=== PATIENT | female | born 1985 | race Two or more races ===

== ENCOUNTER 2019-08-20 15:54 | Inpatient (IN) | payer OTHER ==
[2019-08-20 19:48] VITALS: BMI 29.1
--- NOTE | 2019-08-20 21:41 | HP ---
COWS - Scale Resting Pulse: 1= DC 81-100 Sweatin= Chills/Flushing Restless Observation: 3= Extraneous Movement Pupil Size: 2= Moderately Dilated Bone or Joint Aches: 2= Severe Diffuse Aches Runny Nose/ Eye Tearin= Runny Nose/Eyes GI Upset > 30mins: 2= Nausea/Diarrhea Tremor Observation: 2= Slight Tremor Visible Yawning Observation: 0= None Anxiety or Irritability: 2=Irritable/Anxious Goose Flesh Skin: 0=Smooth Skin COWS Score: 17 CIWA Score Nausea/Vomitin Muscle Tremors: 4-Moderate,w/Arms Extend Anxiety: 4-Mod. Anxious/Guarded Agitation: 3 Paroxysmal Sweats: 2 Orientation: 2-Disoriented Date<2 days Tacttile Disturbances: 0-None Auditory Disturbances: 3-Moderate Harsh/Frighten Visual Disturbances: 3-Moderate Sensitivity Headache: 3-Moderate CIWA-Ar Total Score: 27 - Admission Criteria OASAS Guidelines: Admission for Medically Managed Detox: Requires at least one of the followin. CIWA greater than 12 2. Seizures within the past 24 hours 3. Delirium tremens within the past 24 hours 4. Hallucinations within the past 24 hours 5. Acute intervention needed for co occurring medical disorder 6. Acute intervention needed for co occurring psychiatric disorder 7. Severe withdrawal that cannot be handled at a lower level of care (continued vomiting, continued diarrhea, abnormal vital signs) requiring intravenous medication and/or fluids 8. Patient presents the following: CIWA greater than 12, Acute intervention needed for co-occurring med or psych disorder Admission Criteria Met: Admission criteria met Admitting History and Physical - Primary Care Physician PCP: Teo Garland Admission [facility] Chief Complaint: I need to get off this Allergies/Adverse Reactions: Allergies Allergy/AdvReac Type Severity Reaction Status Date / Time haloperidol [From Haldol] AdvReac Swelling Verified 08/20/19 19:42 History of Present Illness: 34 yo female no pmh for detox heroin use began 6 y ago using 40-45 bags iv etoh use 5 y ago steady pattern cocaine began age 16 - problematic immediately using 3-4 times weekly denies period of abstinence detox 1 mo ago signed out on mmtp x 2 but no abstinence denies incarceration - Ebola screening Have you traveled outside of the country in the last 21 days: No Have you had contact with anyone from an Ebola affected area: No - Review of Systems Constitutional: Loss of Appetite, Changes in sleep EENT: reports: Blurred Vision, Nose Congestion Respiratory: reports: No Symptoms reported Cardiac: reports: No Symptoms Reported GI: reports: Vomiting, Indigestion, Abdominal cramping : reports: No Symptoms Reported Musculoskeletal: reports: Muscle Pain Integumentary: reports: No Symptoms Reported Neuro: reports: Headache Endocrine: reports: No Symptoms Reported Hematology: reports: No Symptoms Reported Psychiatric: reports: other (feels stable pmh bipolar schizoaffective last meds 1 y ago) Patient History - Patient Medical History Hx Anemia: No Hx Asthma: No Hx Chronic Obstructive Pulmonary Disease (COPD): No Hx Cancer: No Hx Cardiac Disorders: No Hx Congestive Heart Failure: No Hx Hypertension: No Hx Hypercholesterolemia: No Hx Pacemaker: No HX Cerebrovascular Accident: No Hx Seizures: No Hx Dementia: No Hx Diabetes: No Hx Gastrointestinal Disorders: No Hx Liver Disease: No Hx Genitourinary Disorders: No Hx Sexually Transmitted Disorders: No Hx Renal Disease (ESRD): No Hx Thyroid Disease: No Hx Human Immunodeficiency Virus (HIV): No Hx Hepatitis C: No Hx Schizophrenia: Yes - Patient Surgical History Past Surgical History: No - Reproductive History Patient is a Female of Child Bearing Age (11 -55 yrs old): Yes Last Menstrual Period: 07/29/16 LMP comment: Patient : No - Smoking Cessation Smoking history: Current every day smoker Aproximately how many cigarettes per day: 3 Initiated information on smoking cessation: Yes 'Breaking Loose' booklet given: 08/20/19 - Substances abused Heroin Substance route: Injection Frequency: Daily Amount used: 40 bags Age of first use: 28 Date of last use: 08/20/19 Cocaine Substance route: Smoking Frequency: 3-6 times per week Amount used: 300 hundred Age of first use: 16 Date of last use: 08/19/19 Alcohol Substance route: Oral Frequency: Daily Amount used: 3 pints Admission Physical Exam BHS - Vital Signs Vital Signs: Vital Signs - 24 hr 08/20/19 19:41 Temperature 97.0 F L Pulse Rate 90 Respiratory 16 Rate Blood Pressure 121/76 - Physical General Appearance: Yes: Disheveled, Irritable, Sweating, Anxious HEENTM: Yes: EOMI, Normocephalic Respiratory: Yes: Chest Non-Tender, Lungs Clear, Normal Breath Sounds Neck: Yes: Within Normal Limits, No masses,lesions,Nodules Breast: Yes: Breast Exam Deferred Cardiology: Yes: Within Normal Limits, Regular Rhythm, Regular Rate, S1, S2 Abdominal: Yes: Within Normal Limits, Normal Bowel Sounds, Non Tender Back: Yes: Within Normal Limits, Normal Inspection Musculoskeletal: Yes: Within Normal Limits, full range of Motion, Gait Steady Extremities: Yes: Within Normal Limits, Normal Inspection, Normal Range of Motion, Non-Tender Neurological: Yes: Within Normal Limits, seat nailer II-XII NML intact, Alert, Motor Strength 5/5, Other (flat affect) Integumentary: Yes: Track Ryan - Diagnostic (1) Opiate dependence Current Visit: Yes Status: Acute (2) EtOH dependence Current Visit: Yes Status: Acute (3) Cocaine abuse Current Visit: Yes Status: Acute (4) Alcohol withdrawal Current Visit: Yes Status: Acute (5) Opiate withdrawal Current Visit: Yes Status: Acute Breathalyzer - Breathalyzer Breathalyzer: 0 Urine Drug Screen - Test Device Lot number: [id number] Expiration date: 04/27/21 - Control Is test valid?: Yes - Results Drug screen NEGATIVE: No Urine drug screen results: ANNY-Cocaine, FEN-Fentanyl, MOP-Opiates, OXY-Oxycodone , MTD-Methadone, BZO-Benzodiazepines Inpatient Rehab Admission - Rehab Decision to Admit Inpatient rehab admission?: No
[2019-08-20] MEDS ORDERED: MAGNESIUM CITRATE 300 ML BOTTLE PO PRN (21:52)
[2019-08-20] MEDS ORDERED: MAG HYDROX/AL HYDROX/SIMETH 30 ML UNIT-DOSE CUP PO PRN (21:52)
[2019-08-20] MEDS ORDERED: hydrOXYzine PAMOATE 25 MG CAPSULE (FP) PO PRN (21:52)
[2019-08-20] MEDS ORDERED: MAGNESIUM HYDROX 2400MG/30ML ORAL SUSPENSION 30 ML CUP PO PRN (21:52)
[2019-08-20] MEDS ORDERED: IBUPROFEN 400 MG TABLET (FP) PO PRN (21:52)
[2019-08-20] MEDS ORDERED: ACETAMINOPHEN 325 MG TABLET (FP) PO PRN ×2 (21:52)
[2019-08-20] MEDS ORDERED: MENTHOL/PHENOL 1 EACH UD MM PRN (21:52)
[2019-08-20] MEDS ORDERED: BISMUTH SUBSALICYLATE 524 MG/30 ML UD PO PRN (21:52)
[2019-08-20] MEDS ORDERED: cloNIDine HCL 0.1 MG TABLET PO PRN (21:52)
[2019-08-20] MEDS ORDERED: chlordiazePOXIDE HCL 10 MG CAPSULE PO PRN (21:52)
[2019-08-20] MEDS ORDERED: METHADONE HCL 10 MG TABLET (FOR DETOX USE ONLY) PO ONE (21:52)
[2019-08-20] MEDS ORDERED: METHOCARBAMOL 500 MG TABLET PO PRN (21:52)
[2019-08-21] MEDS: MELATONIN 5 MG TABLETS PO PRN ×2 (00:03→21:40)
[2019-08-21] MEDS: chlordiazePOXIDE HCL 25 MG CAPSULE PO SCH ×4 (05:34→21:38)
[2019-08-21] MEDS ORDERED: METHADONE HCL 10 MG TABLET (FOR DETOX USE ONLY) ONE (08:54)
[2019-08-21] MEDS ORDERED: METHADONE HCL 5 MG TABLET (FOR DETOX USE ONLY) ONE (08:54)
[2019-08-21 09:57] LABS: HEMATOCRIT 29.4 % (32.4-45.2); HEMOGLOBIN 8.9 GM/dL (10.7-15.3); MCH 22.2 pg (25.7-33.7); MCHC 30.2 g/dl (32.0-36.0); MEAN CELL VOLUME 73.6 fl (80-96); PLATELET COUNT 288 K/MM3 (134-434); WHITE BLOOD COUNT 5.6 K/mm3 (4.0-10.0)
[2019-08-21] MEDS ORDERED: METHADONE (DETOX) 20 MG, METHADONE (DETOX) 5 MG PO ONE (10:00)
[2019-08-21] MEDS: PRENATAL VITAMINS W/ FOLIC ACID TABLET (FP) PO SCH (10:03)
[2019-08-21 10:05] LABS: ALBUMIN 2.8 g/dl (3.4-5.0); BILIRUBIN,TOTAL 0.2 mg/dL (0.2-1); BLOOD UREA NITROGEN 14.7 mg/dL (7-18); CALCIUM 8.3 mg/dL (8.5-10.1); CREATININE 0.8 mg/dL (0.55-1.3); TOT PROT 5.8 g/dl (6.4-8.2)
--- NOTE | 2019-08-21 12:49 | PN ---
[facility] CIWA - CIWA Score Nausea/Vomitin-Mild Nausea/No Vomiting Muscle Tremors: 2 Anxiety: 2 Agitation: 2 Paroxysmal Sweats: No Perspiration Orientation: 0-Oriented Tacttile Disturbances: 1-Very Mild Itch/Numbness Auditory Disturbances: 0-None Visual Disturbances: 1-Very Mild Sensitivity Headache: 2-Mild CIWA-Ar Total Score: 11 S COWS - Scale Resting Pulse: 1= [place] 81-100 Sweatin= No chills or Flushing Restless Observation: 1= Difficult to Sit Still Pupil Size: 1= Pupils >than Normal Bone or Joint Aches: 2= Severe Diffuse Aches Runny Nose/ Eye Tearin= Nasal Congestion GI Upset > 30mins: 1= Stomach Cramp Tremor Observation of Outstretched Hands: 1= Tremor [place], Not Seen Yawning Observation: 1= 1-2x During Session Anxiety or Irritability: 2=Irritable/Anxious Goose Flesh Skin: 0=Smooth Skin COWS Score: 11 [facility] Progress Note (SOAP) Subjective: alert,irritable,anxious,interrupted sleep,pain in the body and back,vaginal discharge for 3 days Objective: 08/21/19 12:47 Vital Signs Temperature 97.3 F L 08/21/19 09:21 Pulse Rate 89 08/21/19 09:21 Respiratory Rate 18 08/21/19 09:21 Blood Pressure 113/71 08/21/19 09:21 O2 Sat by Pulse Oximetry (%) Laboratory Last Values WBC 5.6 K/mm3 (4.0-10.0) 08/21/19 08:15 RBC 4.00 M/mm3 (3.60-5.2) 08/21/19 08:15 Hgb 8.9 GM/dL (10.7-15.3) L 08/21/19 08:15 Hct 29.4 % (32.4-45.2) L 08/21/19 08:15 MCV 73.6 fl (80-96) L 08/21/19 08:15 MCH 22.2 pg (25.7-33.7) L 08/21/19 08:15 MCHC 30.2 g/dl (32.0-36.0) L 08/21/19 08:15 RDW 16.0 % (11.6-15.6) H 08/21/19 08:15 Plt Count 288 K/MM3 (134-434) 08/21/19 08:15 MPV 8.0 fl (7.5-11.1) 08/21/19 08:15 Sodium 144 mmol/L (136-145) 08/21/19 08:15 Potassium 4.0 mmol/L (3.5-5.1) 08/21/19 08:15 Chloride 109 mmol/L (98-107) H 08/21/19 08:15 Carbon Dioxide 29 mmol/L (21-32) 08/21/19 08:15 Anion Gap 6 MMOL/L (8-16) L 08/21/19 08:15 BUN 14.7 mg/dL (7-18) 08/21/19 08:15 Creatinine 0.8 mg/dL (0.55-1.3) 08/21/19 08:15 Est GFR (CKD-EPI)AfAm 113.06 08/21/19 08:15 Est GFR (CKD-EPI)NonAf 97.55 08/21/19 08:15 Random Glucose 95 mg/dL (74-106) 08/21/19 08:15 Calcium 8.3 mg/dL (8.5-10.1) L 08/21/19 08:15 Total Bilirubin 0.2 mg/dL (0.2-1) 08/21/19 08:15 AST 58 U/L (15-37) H 08/21/19 08:15 ALT 81 U/L (13-61) H 08/21/19 08:15 Alkaline Phosphatase 109 U/L (45-117) 08/21/19 08:15 Total Protein 5.8 g/dl (6.4-8.2) L 08/21/19 08:15 Albumin 2.8 g/dl (3.4-5.0) L 08/21/19 08:15 POC Urine HCG, Qual Negative 08/20/19 21:33 RPR Titer Nonreactive (NONREACTIVE) 08/21/19 08:15 Assessment: 08/21/19 12:49 withdrawal symptom Plan: continue detox methadone and librium regimen,vaginitis to give flagyl 500 mgs po tid for 7 days,diflucan 150 mg po one dose, monistat vaginal suppository 1 hs for 7 days,ferrous sulfate 325 mgs po bid,
[2019-08-21] MEDS ORDERED: FLUCONAZOLE 50 MG TABLET PO ONE (12:52)
[2019-08-21] MEDS: FERROUS SO4 325 MG TABLET (FP) PO SCH ×2 (14:21→21:38)
[2019-08-21] MEDS: metroNIDAZOLE 250 MG TABLET PO SCH ×2 (15:45→21:37)
[2019-08-21] MEDS: THIAMINE HCL 100 MG TABLET (FP) PO SCH ×2 (21:38)
[2019-08-21] MEDS ORDERED: MICONAZOLE NITRATE 100 MG SUPP SUPP.VAG PV SCH (22:00)
[2019-08-21] MEDS ORDERED: MICONAZOLE NITRATE 2% VAGINAL CREAM 45 GM TUBE VG SCH (22:00)
[2019-08-22] MEDS: chlordiazePOXIDE 5 MG CAPSULE PO SCH ×2 (06:55→13:03)
[2019-08-22] MEDS: metroNIDAZOLE 250 MG TABLET PO SCH ×2 (07:23→13:03)
[2019-08-22] MEDS ORDERED: METHADONE HCL 10 MG TABLET (FOR DETOX USE ONLY) PO ONE (10:00)
[2019-08-22] MEDS: PRENATAL VITAMINS W/ FOLIC ACID TABLET (FP) PO SCH (10:11)
[2019-08-22] MEDS: FERROUS SO4 325 MG TABLET (FP) PO SCH (10:11)
--- NOTE | 2019-08-22 17:49 | PN ---
[facility] CIWA - CIWA Score Nausea/Vomitin-No Nausea/No Vomiting Muscle Tremors: None Anxiety: 4-Mod. Anxious/Guarded Agitation: 4-Moderately Restless Paroxysmal Sweats: 2 Orientation: 0-Oriented Tacttile Disturbances: 3-Moderate Itch/Numb/Burn Auditory Disturbances: 0-None Visual Disturbances: 0-None Headache: 0-None Present CIWA-Ar Total Score: 13 S COWS - Scale Resting Pulse: 1= [place] 81-100 Sweatin= Chills/Flushing Restless Observation: 1= Difficult to Sit Still Pupil Size: 0= Normal to Room Light Bone or Joint Aches: 1= Mild Discomfort Runny Nose/ Eye Tearin= None GI Upset > 30mins: 0= None Tremor Observation of Outstretched Hands: 0= None Yawning Observation: 1= 1-2x During Session Anxiety or Irritability: 2=Irritable/Anxious Goose Flesh Skin: 3=Piloerection COWS Score: 10 S Progress Note (SOAP) Subjective: Anxious, Restless, Interrupted Sleep, Sweating. Objective: PATIENT A & O X 3, OBSERVED AMBULATING ON DETOX UNIT UNASSISTED. IN NO ACUTE DISTRESS. 08/22/19 17:45 Vital Signs Temperature 98.0 F 08/22/19 14:49 Pulse Rate 95 H 08/22/19 14:49 Respiratory Rate 18 08/22/19 14:49 Blood Pressure 119/78 08/22/19 14:49 O2 Sat by Pulse Oximetry (%) Laboratory Tests 08/20/19 08/21/19 08/21/19 21:33 08:15 08:15 WBC 5.6 RBC 4.00 Hgb 8.9 L Hct 29.4 L MCV 73.6 L MCH 22.2 L MCHC 30.2 L RDW 16.0 H Plt Count 288 MPV 8.0 Sodium 144 Potassium 4.0 Chloride 109 H Carbon Dioxide 29 Anion Gap 6 L BUN 14.7 Creatinine 0.8 Est GFR (CKD-EPI)AfAm 113.06 Est GFR (CKD-EPI)NonAf 97.55 Random Glucose 95 Calcium 8.3 L Total Bilirubin 0.2 AST 58 H ALT 81 H Alkaline Phosphatase 109 Total Protein 5.8 L Albumin 2.8 L POC Urine HCG, Qual Negative RPR Titer 08/21/19 08:15 WBC RBC Hgb Hct MCV MCH MCHC RDW Plt Count MPV Sodium Potassium Chloride Carbon Dioxide Anion Gap BUN Creatinine Est GFR (CKD-EPI)AfAm Est GFR (CKD-EPI)NonAf Random Glucose Calcium Total Bilirubin AST ALT Alkaline Phosphatase Total Protein Albumin POC Urine HCG, Qual RPR Titer Nonreactive LABS NOTED. Assessment: 08/22/19 17:45 WITHDRAWAL SYMPTOMS. ANEMIA. ELEVATED AST LEVEL. ELEVATED ALT LEVEL. 08/22/19 17:45 Plan: CONTINUE DETOX. CONTINUE FEOSOL. RE-CHECK CBC TOMORROW AM DUE TO ANEMIA NOTED ON DETOX ADMISSION LABORATORY ASSESSMENT. PATIENT REPORTS THAT SHE STARTED TREATMENT FOR SYPHILIS A FEW MONTHS AGO, BUT THAT SHE ONLY TOOK ONE INSTALLMENT OF INJECTION AND THAT SHE DID NOT COMPLETE FULL COURSE OF TREATMENT. HOWEVER, RPR RESULT FOR THIS ADMISSION IS ' NONREACTIVE.' PATIENT ADVISED TO FOLLOW-UP WITH HER PROGRAM DIRECTOR GROUP WORK AFTER DISCHARGE FROM DETOX FOR FURTHER MEDICAL EVALUATION FOR THIS MATTER. PATIENT VERBALIZED UNDERSTANDING OF RECOMMENDATION.
--- NOTE | 2019-08-22 17:51 | DS ---
[facility] Detox Discharge Summary Admission Date: 08/20/19 Discharge Date: 08/22/19 - History Present History: Alcohol Dependence, Opioid Dependence - Physical Exam Results Vital Signs: Vital Signs Temperature 98.0 F 08/22/19 14:49 Pulse Rate 95 H 08/22/19 14:49 Respiratory Rate 18 08/22/19 14:49 Blood Pressure 119/78 08/22/19 14:49 O2 Sat by Pulse Oximetry (%) - Treatment Hospital Course: Discharged Condition Good (DISCUSSED WITH PATIENT RISKS OF LEAVING AMA . PT INSISTS ON LEAVING STATES HSJigar MISSES HER FAMILY AND IS PLANNING TO JOIN AN OUTPT PROGRAM ([employer] ) IN [place] , WHERE SHE CURRENTLY RESIDES . PT VERBALIZED UNDERSTANDING OF RISKS AND EXPRESSED SHE WISHES TO PROCEED WITH AMA DISCHARGE . DECLINED RX FOR NARCAN.) - Medication Discharge Medications: Ambulatory Orders NK [No Known Home Medication] 08/20/19
[2019-08-22 17:52] VITALS: BP 121/85; PULSE 89; TEMP 98.9
[2019-08-23] MEDS ORDERED: chlordiazePOXIDE HCL 10 MG CAPSULE PO PRN
[2019-08-23] MEDS ORDERED: chlordiazePOXIDE HCL 10 MG CAPSULE PO SCH (05:00)
[2019-08-23] MEDS ORDERED: METHADONE (DETOX) 10 MG, METHADONE (DETOX) 5 MG PO ONE (10:00)
[2019-08-24] MEDS ORDERED: chlordiazePOXIDE HCL 10 MG CAPSULE PO ONE (05:00)
[2019-08-24] MEDS ORDERED: METHADONE HCL 10 MG TABLET (FOR DETOX USE ONLY) PO ONE (10:00)
[2019-08-25] MEDS ORDERED: METHADONE HCL 5 MG TABLET (FOR DETOX USE ONLY) PO ONE (06:00)
== END 2019-08-22 05:56 | disposition left against medical advice (07) | DRG 770 ==
LOC: YASAS 15:54 → Y3N 23:37
PROVIDERS: ADMIT Allergy & Immunology; ATTEND Allergy & Immunology
PROC: HZ2ZZZZ Detoxification Services for Substance Abuse Treatment (ICD-10-PCS; principal; 2019-08-20)
DX: F11.23 Opioid dependence with withdrawal (principal); F10.230 Alcohol dependence with withdrawal, uncomplicated; F14.10 Cocaine abuse, uncomplicated; F17.210 Nicotine dependence, cigarettes, uncomplicated; D64.9 Anemia, unspecified; R74.0 Nonspecific elevation of levels of transaminase and lactic acid dehydrogenase [LDH]; Z88.8 Allergy status to other drugs, medicaments and biological substances
CPT/HCPCS: 36415; 80053; 81025; 85027; 86593